=== PATIENT | female | born 1975 | race Caucasian/White ===

== ENCOUNTER 2017-05-17 16:13 | Emergency (ER) | payer MEDICAID ==
[2017-05-17] MEDS ORDERED: Dextrose 50% SYRINGE Inj (50 ml) IVP ONE (16:47)
[2017-05-17] MEDS ORDERED: Dextrose 5%/0.9% NS 1,000 ML IV SCH (17:00)
[2017-05-17 17:07] LABS: BASO # 0.1 K/uL (0.0-0.2); BASO % 0.6 % (0.0-2.0); EOS # 0.5 K/uL (0.0-0.7); EOS % 4.1 % (0.0-4.0); HEMATOCRIT 38.6 % (34.0-47.0); LYMPH % 26.8 % (20.0-40.0); MEAN CELL VOLUME 78.4 fl (81.0-99.0); MEAN CORPUSCULAR HEMOGLOBIN 26.9 pg (27.0-31.0); MEAN CORPUSCULAR HGB CONC 34.3 g/dL (33.0-37.0); MEAN PLATELET VOLUME 8.9 fl (7.2-11.7); MONO # 0.9 K/uL (0.0-0.8); MONO % 8.3 % (0.0-10.0); NEUT # 6.7 K/uL (1.8-7.0); NEUT % 60.2 % (50.0-75.0); NRBC % 0.2 % (0.0-0.0); RED CELL DISTRIBUTION WIDTH 14.9 % (11.5-14.5); WHITE BLOOD COUNT 11.1 K/uL (4.8-10.8)
[2017-05-17 17:12] LABS: ALB/GLOB RATIO 1.2 (1.0-2.1); ALKALINE PHOSPHATASE 102 U/L (38-126); ALT/SGPT 27 U/L (9-52); AST/SGOT 24 U/L (14-36); BILIRUBIN,TOTAL 0.9 mg/dl (0.2-1.3); BLOOD UREA NITROGEN 10 mg/dl (7-17); CALCIUM 9.1 mg/dL (8.4-10.2); CARBON DIOXIDE 26 mmol/L (22-30); CHLORIDE 106 mmol/L (98-107); GFR AFRICAN-AMERICAN > 60; GLUCOSE,RANDOM 82 mg/dL (65-105); POTASSIUM 3.7 MMOL/L (3.6-5.0); SODIUM 142 mmol/l (132-148); TOTAL PROTEIN 7.4 G/DL (6.3-8.2)
[2017-05-17 19:59] VITALS: BP 129/61; PULSE 81; RESP 17; TEMP 98.4; O2SAT 99
== END 2017-05-17 20:00 | disposition home or self-care (01) ==
LOC: H.ER 16:13
DX: K29.70 Gastritis, unspecified, without bleeding (principal)
CPT/HCPCS: 80053; 81025; 82948; 85025; 96374; 96375; 99285; J2405; J7042

== ENCOUNTER 2017-06-01 06:01 | Emergency (ER) | payer MEDICAID ==
[2017-06-01 06:39] VITALS: RESP 18
--- NOTE | 2017-06-01 07:05 | ED PDOC ---
HPI: Abdomen Time Seen by Provider: 06/01/17 06:15 Chief Complaint (Nursing): Abdominal Pain Chief Complaint (Provider): Abdominal Pain History Per: Patient History/Exam Limitations: no limitations Onset/Duration Of Symptoms: Days (x7) Current Symptoms Are (Timing): Still Present Additional Complaint(s): Willi Chopra is a 41 year old female that presents to the ED with a chief complaint of epigastric pain that she has been experiencing for the past week. Patient reports that today in the morning she began to experience nausea, but denies any diarrhea or fever. Past Medical History Reviewed: Historical Data, Nursing Documentation, Vital Signs Vital Signs: Last Vital Signs Temp 98.1 F 06/01/17 09:59 Pulse 87 06/01/17 09:59 Resp 18 06/01/17 09:59 BP 124/67 06/01/17 09:59 Pulse Ox 97 06/04/17 14:47 - Medical History PMH: Gastritis - Surgical History Surgical History: Cholecystectomy - Family History Family History: States: Unknown Family Hx - Social History Current smoker - smoking cessation education provided: No Alcohol: None Drugs: Denies - Immunization History Hx Tetanus Toxoid Vaccination: No Hx Influenza Vaccination: No Hx Pneumococcal Vaccination: No - Home Medications Home Medications: Ambulatory Orders Medication Instructions Recorded Dicyclomine [Dicyclomine HCl] 10 mg PO TID #10 cap 05/17/17 Famotidine [Pepcid] 20 mg PO BID #28 tab 06/01/17 Ondansetron [Zofran] 4 mg PO Q8H #9 tab 06/01/17 - Allergies Allergies/Adverse Reactions: Allergies Allergy/AdvReac Type Severity Reaction Status Date / Time No Known Allergies Allergy Verified 05/17/17 16:24 Review of Systems Constitutional: Negative for: Fever Gastrointestinal: Positive for: Nausea, Abdominal Pain (epigastric). Negative for: Diarrhea Physical Exam - Reviewed Nursing Documentation Reviewed: Yes Vital Signs Reviewed: Yes - Physical Exam Appears: Positive for: Non-toxic, No Acute Distress Head Exam: Positive for: ATRAUMATIC, NORMOCEPHALIC Skin: Positive for: Normal Color, Warm Eye Exam: Positive for: Normal appearance, EOMI, PERRL Cardiovascular/Chest: Positive for: Regular Rate, Rhythm. Negative for: Murmur Respiratory: Positive for: Normal Breath Sounds. Negative for: Wheezing Gastrointestinal/Abdominal: Positive for: Tenderness (Mid epigastric tenderness. No right upper quadrant tenderness.). Negative for: Normal Exam Neurologic/Psych: Positive for: Alert, Oriented. Negative for: Motor/Sensory Deficits - Laboratory Results Result Diagrams: 06/01/17 07:10 06/01/17 07:10 - ECG O2 Sat by Pulse Oximetry: 97 (RA) Pulse Ox Interpretation: Normal Medical Decision Making Medical Decision Making: Impression: Gastritis vs. Pancreatitis Plan: * CMP * CBC * Lipase * Pepcid 20 mg IV * Zofran 4 mg IV * NaCl 1000 mLs at 150 mLs/hr * Reevaluation Scribe Attestation: Documented by Arlene Giraldo, acting as a scribe for Andrew Espino MD. Provider Scribe Attestation: All medical record entries made by the Scribe were at my direction and personally dictated by me. I have reviewed the chart and agree that the record accurately reflects my personal performance of the history, physical exam, medical decision making, and the department course for this patient. I have also personally directed, reviewed, and agree with the discharge instructions and disposition. Disposition - Clinical Impression Clinical Impression: Gastritis - Patient ED Disposition Is Patient to be Admitted: Transfer of Care - Disposition Referrals: Tani Dunne MD [Family Provider] - Disposition: Transfer of Care Disposition Time: 07:00 Condition: IMPROVED Prescriptions: Famotidine [Pepcid] 20 mg PO BID #28 tab Ondansetron [Zofran] 4 mg PO Q8H #9 tab Instructions: Gastritis (ED) Forms: [employer] ([employer]) (Sami) Patient Signed Over To: Fabiola Becerra
[2017-06-01] MEDS ORDERED: Sodium Chloride 0.9% 1,000 ML IV STA (07:06)
[2017-06-01 07:40] LABS: BASO # 0.1 K/uL (0.0-0.2); BASO % 0.6 % (0.0-2.0); EOS # 0.1 K/uL (0.0-0.7); HEMATOCRIT 38.1 % (34.0-47.0); LYMPH # 1.6 K/uL (1.0-4.3); LYMPH % 12.5 % (20.0-40.0); MEAN CELL VOLUME 78.9 fl (81.0-99.0); MEAN CORPUSCULAR HEMOGLOBIN 26.3 pg (27.0-31.0); MEAN CORPUSCULAR HGB CONC 33.3 g/dL (33.0-37.0); MEAN PLATELET VOLUME 9.2 fl (7.2-11.7); MONO % 7.8 % (0.0-10.0); NEUT # 9.9 K/uL (1.8-7.0); NEUT % 78.1 % (50.0-75.0); RED CELL DISTRIBUTION WIDTH 15.1 % (11.5-14.5); WHITE BLOOD COUNT 12.7 K/uL (4.8-10.8)
[2017-06-01 07:51] LABS: ALB/GLOB RATIO 1.2 (1.0-2.1); ALKALINE PHOSPHATASE 107 U/L (38-126); ALT/SGPT 58 U/L (9-52); AST/SGOT 96 U/L (14-36); BLOOD UREA NITROGEN 12 mg/dl (7-17); CALCIUM 8.2 mg/dL (8.4-10.2); CARBON DIOXIDE 24 mmol/L (22-30); CHLORIDE 106 mmol/L (98-107); GFR AFRICAN-AMERICAN > 60; GLUCOSE,RANDOM 110 mg/dL (65-105); LIPASE 121 U/L (23-300); POTASSIUM 4.4 MMOL/L (3.6-5.0); SODIUM 140 mmol/l (132-148); TOTAL PROTEIN 6.9 G/DL (6.3-8.2)
--- NOTE | 2017-06-01 08:21 | ED PDOC ---
- Laboratory Results Result Diagrams: 06/01/17 07:10 06/01/17 07:10 - ECG O2 Sat by Pulse Oximetry: 97 (RA) Pulse Ox Interpretation: Normal Medical Decision Making Medical Decision Making: Time: 07:45 --Patient is signed out to me by Dr. Andrew Espino MD, pending labs and reevaluation Scribe Attestation: Documented by Dalila Kimbrough, acting as a scribe for Fabiola Becerra MD Provider Scribe Attestation: All medical record entries made by the Scribe were at my direction and personally dictated by me. I have reviewed the chart and agree that the record accurately reflects my personal performance of the history, physical exam, medical decision making, and the department course for this patient. I have also personally directed, reviewed, and agree with the discharge instructions and disposition. 9.30a - better but still has epigastric pain Disposition Doctor Will See Patient In The: Office Counseled Patient/Family Regarding: Diagnosis, Need For Followup, Rx Given - Clinical Impression Clinical Impression: Gastritis - POA Present On Arrival: None - Disposition Referrals: Tani Dunne MD [Family Provider] - Disposition: Routine/Home Disposition Time: 09:46 Condition: IMPROVED Prescriptions: Famotidine [Pepcid] 20 mg PO BID #28 tab Ondansetron [Zofran] 4 mg PO Q8H #9 tab Instructions: Gastritis (ED) Forms: [employer] (Luxembourgish)
[2017-06-01 10:00] VITALS: BP 124/67; PULSE 87; TEMP 98.1
[2017-06-04 14:47] VITALS: O2SAT 97
== END 2017-06-01 10:00 | disposition home or self-care (01) ==
LOC: H.ER 06:01
DX: K29.70 Gastritis, unspecified, without bleeding (principal)
CPT/HCPCS: 80053; 81025; 83690; 85025; 96374; 99283; J2405; J7040

== ENCOUNTER 2017-12-10 12:37 | Emergency (ER) | payer SELFPAY ==
[2017-12-10 12:45] VITALS: BP 122/65; PULSE 79; RESP 18; TEMP 98.9; O2SAT 99
--- NOTE | 2017-12-10 13:57 | ED PDOC ---
HPI: Female Pain Time Seen by Provider: 12/10/17 12:43 Chief Complaint (Nursing): Female Genitourinary Chief Complaint (Provider): Right sided pelvic pain radiating to the back the thigh History Per: Patient History/Exam Limitations: no limitations Onset/Duration Of Symptoms: Days Current Symptoms Are (Timing): Still Present Quality Of Discomfort: Sharp Additional Complaint(s): 42 yo female with no medical problems presents with right sided pevlic pain for 2 weeks. PT states the last 3 days it has radiated to the right thigh and right back. No N/V/D. No vaginal discharge. No pain with intercourse. Past Medical History Reviewed: Historical Data, Nursing Documentation, Vital Signs Vital Signs: Last Vital Signs Temp 98.9 F 12/10/17 12:44 Pulse 79 12/10/17 12:44 Resp 18 12/10/17 12:44 BP 122/65 12/10/17 12:44 Pulse Ox 99 12/10/17 12:44 - Medical History PMH: No Chronic Diseases - Surgical History Surgical History: Cholecystectomy - Family History Family History: States: Unknown Family Hx - Immunization History Hx Tetanus Toxoid Vaccination: No Hx Influenza Vaccination: No Hx Pneumococcal Vaccination: No - Home Medications Home Medications: Ambulatory Orders Medication Instructions Recorded Dicyclomine [Dicyclomine HCl] 10 mg PO TID #10 cap 05/17/17 Famotidine [Pepcid] 20 mg PO BID #28 tab 06/01/17 Ondansetron [Zofran] 4 mg PO Q8H #9 tab 06/01/17 traMADol [Ultram] 50 mg PO Q6H PRN #10 tab 12/10/17 - Allergies Allergies/Adverse Reactions: Allergies Allergy/AdvReac Type Severity Reaction Status Date / Time No Known Allergies Allergy Verified 05/17/17 16:24 Review of Systems ROS Statement: Except As Marked, All Systems Reviewed And Found Negative Constitutional: Negative for: Fever, Chills Gastrointestinal: Negative for: Nausea, Vomiting, Abdominal Pain Genitourinary Female: Positive for: Pelvic Pain. Negative for: Dysuria, Frequency, Hematuria, Vaginal Discharge, Vaginal Bleeding Musculoskeletal: Positive for: Back Pain Physical Exam - Reviewed Nursing Documentation Reviewed: Yes Vital Signs Reviewed: Yes - Physical Exam Appears: Positive for: Well, Non-toxic, No Acute Distress Head Exam: Positive for: ATRAUMATIC, NORMAL INSPECTION, NORMOCEPHALIC Skin: Positive for: Normal Color, Warm, DRY Eye Exam: Positive for: Normal appearance ENT: Positive for: Normal ENT Inspection Neck: Positive for: Normal, Painless ROM Cardiovascular/Chest: Positive for: Regular Rate, Rhythm Respiratory: Positive for: CNT, Normal Breath Sounds Gastrointestinal/Abdominal: Positive for: Normal Exam, Soft. Negative for: Tenderness Back: Positive for: Normal Inspection Extremity: Positive for: Normal ROM Neurologic/Psych: Positive for: Alert, Oriented - Laboratory Results Result Diagrams: 12/10/17 14:26 12/10/17 14:26 - ECG O2 Sat by Pulse Oximetry: 99 Medical Decision Making Medical Decision Making: Labs normal. Urine normal. US normal. Disposition - Clinical Impression Clinical Impression: Pelvic pain - Patient ED Disposition Is Patient to be Admitted: No Counseled Patient/Family Regarding: Diagnosis, Need For Followup - Disposition [facility] Madiha Syed MD [Medical Doctor] - Disposition: Routine/Home Disposition Time: 18:20 Condition: STABLE Prescriptions: traMADol [Ultram] 50 mg PO Q6H PRN #10 tab PRN Reason: Pain Instructions: Acute Pelvic Pain Forms: [employer] ([place]i) Print Language: BOLIVIAN
[2017-12-10 14:32] LABS: BASO # 0.1 K/uL (0.0-0.2); BASO % 0.8 % (0.0-2.0); EOS # 0.2 K/uL (0.0-0.7); EOS % 2.4 % (0.0-4.0); HEMOGLOBIN 13.3 g/dL (12.0-16.0); LYMPH % 29.8 % (20.0-40.0); MEAN CELL VOLUME 77.1 fl (81.0-99.0); MEAN CORPUSCULAR HEMOGLOBIN 26.5 pg (27.0-31.0); MEAN CORPUSCULAR HGB CONC 34.4 g/dL (33.0-37.0); MONO # 0.8 K/uL (0.0-0.8); MONO % 8.2 % (0.0-10.0); NEUT # 5.9 K/uL (1.8-7.0); NEUT % 58.8 % (50.0-75.0); NRBC % 0.1 % (0.0-0.0); RBC 5.01 Mil/uL (3.80-5.20); RED CELL DISTRIBUTION WIDTH 16.3 % (11.5-14.5)
[2017-12-10 14:41] LABS: ALB/GLOB RATIO 1.1 (1.0-2.1); ALBUMIN 3.9 g/dL (3.5-5.0); ALT/SGPT 38 U/L (9-52); AST/SGOT 20 U/L (14-36); BLOOD UREA NITROGEN 8 mg/dl (7-17); CALCIUM 8.9 mg/dL (8.4-10.2); GFR AFRICAN-AMERICAN > 60; GFR NON-AFRICAN AMERICAN > 60
--- NOTE | 2017-12-10 17:40 | US ---
HISTORY: right sided pelvic pain, 2 weeks COMPARISON: None available. TECHNIQUE: Transvaginal pelvic ultrasound was performed with longitudinal and transverse images submitted for interpretation. FINDINGS: UTERUS: Measures 10.2 x 4.8 x 5.3 cm. Normal in size and appearance. No fibroid or other mass lesion seen. ENDOMETRIUM: Measures 15.0 mm in diameter. No suspicious echo pattern related. CERVIX: A few tiny nabothian cysts are identified anteriorly at the cervix with remainder unremarkable. RIGHT OVARY: Measures 2.3 x 1.6 x 1.3 cm. No solid mass. Normal flow. LEFT OVARY: Measures 2.5 x 1.4 x 2.3 cm. No solid mass. Normal flow. FREE FLUID: No significant free fluid noted. OTHER FINDINGS: None. IMPRESSION: Unremarkable pelvic ultrasound.
== END 2017-12-10 18:53 | disposition home or self-care (01) ==
LOC: H.ER 12:37
DX: R10.2 Pelvic and perineal pain (principal)